=== PATIENT | female | born 1980 | race Caucasian/White ===

== ENCOUNTER 2017-08-13 20:03 | Emergency (ER) | payer OTHER ==
[2017-08-13] MEDS: LIDOCAINE VISCOUS 2% SOLN 15ML UDC SSP (22:42)
[2017-08-13] MEDS: PERCOCET 5MG/325MG TAB PO (22:42)
== END 2017-08-13 22:53 | disposition home or self-care (01) ==
LOC: M ED 20:03
DX: K08.89 Other specified disorders of teeth and supporting structures (principal); S02.5XXA Fracture of tooth (traumatic), initial encounter for closed fracture; X58.XXXA Exposure to other specified factors, initial encounter; Y92.89 Other specified places as the place of occurrence of the external cause
CPT/HCPCS: 99282

== ENCOUNTER → 2020-02-23 | Outpatient (REF) | payer OTHER ==
[~2020-02-23] MED LIST: LIDO2SOL17 SSP
[2020-02-27 19:06] LABS: HSV-1 DNA Negative (Negative); HSV-2 DNA Negative (Negative)
== END ==
LOC: M LAB REF 16:51
PROVIDERS: ATTEND Physician Assistant
DX: Z11.3 Encounter for screening for infections with a predominantly sexual mode of transmission (principal)

== ENCOUNTER → 2020-07-27 | Outpatient (REF) | payer OTHER | LOC: M WUC 19:46 | PROVIDERS: ATTEND Physician Assistant | DX: N39.0 Urinary tract infection, site not specified (principal) ==